=== PATIENT | male | born 1995 | race Two or more races ===

== ENCOUNTER 2017-12-18 17:09 | Emergency (ER) | payer OTHER | END 2017-12-18 18:17 | disposition home or self-care (01) | LOC: ER 17:09 | DX: S61.213A Laceration without foreign body of left middle finger without damage to nail, initial encounter (principal); W26.8XXA Contact with other sharp object(s), not elsewhere classified, initial encounter; Y93.89 Activity, other specified; Y99.8 Other external cause status; Y92.89 Other specified places as the place of occurrence of the external cause | CPT/HCPCS: 73140; 99284 ==